=== PATIENT | female | born 1985 | race Caucasian/White ===

== ENCOUNTER 2017-01-27 19:09 | Emergency (ER) | payer OTHER ==
[~2017-01-27] VITALS: Ht 165.1 cm; Wt 62.0 kg
[2017-01-27 19:33] VITALS: BP 104/73
[2017-01-27] MEDS ORDERED: NAPROXEN500 MG PO (20:44)
== END 2017-01-27 21:03 | disposition home or self-care (01) ==
LOC: EME 19:09
DX: S20.219A Contusion of unspecified front wall of thorax, initial encounter (principal); S70.12XA Contusion of left thigh, initial encounter; V86.69XA Passenger of other special all-terrain or other off-road motor vehicle injured in nontraffic accident, initial encounter; F17.200 Nicotine dependence, unspecified, uncomplicated
CPT/HCPCS: 71100; 73552; 99281; 99283